=== PATIENT | female | born 1930 | race Caucasian/White ===

== ENCOUNTER 2019-01-31 16:42 | Inpatient (IN) | payer MEDICARE, MEDICAID ==
[~2019-01-31] VITALS: Ht 170.1 cm; Wt 84.2 kg
--- NOTE | ~2019-01-31 | EKG ---
[place], [place] ELECTROCARDIOGRAM REPORT NAME: CYNTHIA JARQUIN UNIT #: [id number] ROOM: 525 DOCTOR: MERARY DRAFT REPORT BIRTHDATE: [birth year] [facility] Test Date: 2019-01-31 Test Time: 17:16:41 Pat Name: CYNTHIA JARQIUN Department: Room: [facility] Gender: F First Line Production Supervisor: Brooke Joiner : [id number] Requested By: SHAY SCOTT DNP Order Number: [id number] Reading MD: Pastor Romano MD Measurements Intervals [place] Rate: 70 P: 8 IN: 193 QRS: -32 QRSD: 102 T: 7 QT: 441 QTc: 476 Interpretive Statements Sinus rhythm Left axis deviation Low voltage, precordial leads Borderline T abnormalities, anterior leads Electronically Signed On 02-01-2019 13:35:01 PDT by Pastor Romano MD CM:EKGRPT:ELECTROCARDIOGRAM REPORT [id number] SHAY SCOTT DNP EPIPHANY DRAFT REPORT SHAY SCOTT DNP
[2019-01-31 16:53] VITALS: BP 125/68
[2019-01-31 17:40] LABS: BASO % 0.2 % (0.0-1.0); EOS # 0.5 10*3/uL (0.0-0.4); EOS % 4.3 % (1.0-4.0); HEMOGLOBIN 11.3 g/dl (12.0-16.0); LYMPH # 3.9 10*3/uL (1.3-4.4); LYMPH % 31.1 % (27.0-41.0); MEAN CELL VOLUME 90.7 fl (81.0-99.0); MEAN CORPUSCULAR HGB 28.5 pg (27.0-31.0); MEAN CORPUSCULAR HGB CONC 31.4 g/dl (33.0-37.0); MEAN PLATELET VOLUME 11.3 fl (9.6-12.3); MONO # 1.3 10*3/uL (0.1-1.0); MONO % 10.2 % (3.0-9.0); NEUT # 6.7 10*3/uL (2.3-7.9); NEUT % 53.8 % (47.0-73.0); PLATELET COUNT AUTOMATED 277 10*3/uL (130-400); RED BLOOD COUNT 3.97 10*6/uL (4.10-5.10); WHITE BLOOD COUNT 12.4 10*3/uL (4.8-10.8)
--- NOTE | 2019-01-31 17:47 | NUR ---
[facility]
[2019-01-31 17:50] LABS: ACT PARTIAL THROMBO TIME 37.4 SECONDS (20.0-32.1); INTERNATIONAL NORM RATIO 2.5 (2.0-3.5)
[2019-01-31 17:54] LABS: ALBUMIN 2.4 gm/dl (3.1-4.5); ALKALINE PHOSPHATASE 97 U/L (45-117); BUN 20 mg/dl (7-24); CHLORIDE 105 mmol/L (98-107); CREATININE 1.39 mg/dL (0.55-1.02); LIPASE 99 U/L (73-393); POTASSIUM 5.3 mmol/L (3.5-5.1); SGOT/AST 23 IU/L (3-35); SGPT/ALT 21 U/L (12-78); SODIUM 140 mmol/L (136-145); TOTAL PROTEIN 6.9 gm/dL (6.4-8.2)
[2019-01-31 17:55] LABS: TROPONIN I < 0.015 ng/ml (<0.045)
[2019-01-31 18:23] VITALS: BP 131/71
[2019-01-31 18:23] LABS: BILIRUBIN NEGATIVE (NEGATIVE); BLOOD NEGATIVE (NEGATIVE); CLARITY SL CLOUDY (CLEAR); COLOR YELLOW (YELLOW); GLUCOSE NEGATIVE (NEGATIVE); KETONE NEGATIVE (NEGATIVE); LEUKO ESTERASE 3+ (NEGATIVE); NITRITE POSITIVE (NEGATIVE); UROBILINOGEN 0.2 E.U./dl (0.2-1.0)
[2019-01-31 18:31] LABS: BACTERIA 4+; WBC 51-100 wbc/hpf (0-5)
[2019-01-31 18:45] VITALS: BP 119/47
[2019-01-31 20:00] VITALS: BP 119/50
--- NOTE | 2019-01-31 20:27 | NUR ---
LAB CALLED ANGIE 3.5 CHIEF OF PLANNING SONIA NOTIFIED
[2019-01-31 23:20] VITALS: BP 119/50
--- NOTE | 2019-01-31 23:20 | NUR ---
A 88, admitted to 5E, under the services of ROSSY Larry DO with a diagnosis of UTI, GENERALIZED WEAKNESS, HYPERKALEMIA. Chief complaint is ABDOMINAL PAIN. Patient arrived via ambulance from ER. Monitor applied. Initial assessment completed. Vital signs taken and recorded. ROSSY LARRY DO notified of admission to the unit. Orders received. See assessment for past medical history, medications and allergies. Patient and/or family oriented to unit. visitation policy reviewed. Clothing/patient valuable form completed. WOLF TRIANA
[2019-02-01] VITALS: BP 119/50
[2019-02-01] MEDS ORDERED: CARDIZEM CD240 M1 PO
[2019-02-01] MEDS ORDERED: ASPIRIN ADULT L81 M1 PO
[2019-02-01] MEDS ORDERED: CELEXA40 MG PO (00:01)
[2019-02-01] MEDS ORDERED: CLARITIN10 MG PO (00:01)
[2019-02-01] MEDS ORDERED: COUMADIN4 M2 PO (00:03)
[2019-02-01] MEDS ORDERED: B121000 MCG/2 IM (00:05)
[2019-02-01] MEDS ORDERED: DICYCLOMINE HCL10 MG PO (00:06)
[2019-02-01] MEDS ORDERED: IRON325 M1 PO (00:07)
[2019-02-01] MEDS ORDERED: FLORASTOR250 MG PO (00:08)
[2019-02-01] MEDS ORDERED: HEMORRHOIDAL S R (00:10)
[2019-02-01] MEDS ORDERED: LASIX20 MG PO (00:11)
[2019-02-01] MEDS ORDERED: MAG-OXIDE200 MG PO (00:12)
[2019-02-01] MEDS ORDERED: GLUCOPHAGE850 M1 PO (00:13)
[2019-02-01] MEDS ORDERED: METOPROLOL TART50 M1 PO (00:13)
[2019-02-01] MEDS ORDERED: MIRALAX POWDER17 G1 PO (00:14)
[2019-02-01] MEDS ORDERED: POTASSIUM CHLO20 ME3 PO (00:16)
[2019-02-01] MEDS ORDERED: TYLENOL325 M1 PO (00:17)
[2019-02-01] MEDS ORDERED: RANITIDINE HCL150 M1 PO (00:17)
[2019-02-01] MEDS ORDERED: VITAMIN C500 M4 PO (00:18)
--- NOTE | 2019-02-01 05:09 | NUR ---
MILKACYNTHIA [id number] Please refer to the physician's history and physical for past medical history, comorbid conditions, and allergies. Diagnosis: UTI,GENERALIZED WEAKNESS,HYPERKALEMIA Kar Score: 14,MODERATE RISK WOUND DESCRIPTIONS: Wound Number: 1 Location of the wound: right buttocks Type of wound: stage 2 Thickness: Partial Size: 0.6cm x 0.3cm x 0.1cm Tunneling: none Undermining: none Sinus Tract: none Presence of Exudate: Serosanguineous Amount: None Color: Red Odor: None Periwound Skin Appearance: Erythema Wound edges: approximated Pain (associated with wound): none at time of assessment How does patient state this happened? pt unable to state how this happened Wound Number: 2 Location of the wound: left buttocks Type of wound: stage 2 Thickness: Partial Size: 2.0cm x 1.5cm x 0.1cm Tunneling: none Undermining: none Sinus Tract: none Presence of Exudate: Serosanguineous Amount: None Color: Red Odor: None Periwound Skin Appearance: Erythema Wound edges: approximated Pain (associated with wound): none at time of assessment How does patient state this happened? pt unable to state how this happened Wound Number: 3 Location of the wound: left upper buttocks Type of wound: stage 2 Thickness: Partial Size: 0.8cm x 0.8cm x 0.1cm Tunneling: none Undermining: none Sinus Tract: none Presence of Exudate: Serosanguineous Amount: None Color: Red Odor: None Periwound Skin Appearance: Erythema Wound edges: approximated Pain (associated with wound): none at time of assessment How does patient state this happened? pt unable to state how this happened Bilateral heels red and blanchable upon assessment. No open areas noted to bilateral heels and no drainage noted to bilateral heel. Surface the patient is resting on: Isoflex SKIN PREVENTION RECOMMENDATION: 1. Pressure redistribution support surface as appropriate 2. Elevate heels 3. Remove boots/TEDS every shift and reapply 4. Head of bed 30 degrees as tolerated 5. Assess nutrition and hydration 6. Manage moisture 7. Avoid the use of containment devices while in bed 8. Use absorptive products on surfaces limit layers of linens on bed 9. Turn and reposition every 1-2 hours in bed and every 1 hour in chair as tolerated 10. Weight shifts every 15 minutes while up in chair 11. Offloading with pillows or device to keep heels elevated off bed 12. Monitor skin at least every shift 13. Inspect under medical devices twice a day WOUND TREATMENT RECOMMENDATIONS: Wheelchair cushion when oob. Heel raiser pro boots while in bed. Stage 2 guidelines: Cleanse right buttocks, left buttocks and left upper buttocks with nss and apply sureprep around the wound hydrogel to wound bed and cover with optifoam sacral gentle.
[2019-02-01 06:48] LABS: BASO % 0.4 % (0.0-1.0); EOS # 0.5 10*3/uL (0.0-0.4); EOS % 4.4 % (1.0-4.0); HEMATOCRIT 36.7 % (37.0-47.0); LYMPH # 3.1 10*3/uL (1.3-4.4); LYMPH % 29.6 % (27.0-41.0); MEAN CELL VOLUME 92.9 fl (81.0-99.0); MEAN CORPUSCULAR HGB 27.8 pg (27.0-31.0); MEAN PLATELET VOLUME 11.6 fl (9.6-12.3); MONO % 9.7 % (3.0-9.0); NEUT # 5.9 10*3/uL (2.3-7.9); NEUT % 55.4 % (47.0-73.0); PLATELET COUNT AUTOMATED 241 10*3/uL (130-400); RED BLOOD COUNT 3.95 10*6/uL (4.10-5.10); RED CELL DISTRI WIDTH 15.1 % (0-14.5); WHITE BLOOD COUNT 10.6 10*3/uL (4.8-10.8)
[2019-02-01 07:04] LABS: ALBUMIN 2.6 gm/dl (3.1-4.5); CREATININE 1.51 mg/dL (0.55-1.02); FREE T4 1.4 ng/dl (0.76-1.46); PHOSPHOROUS 3.6 mg/dL (2.5-4.9); POTASSIUM 4.9 mmol/L (3.5-5.1); TOTAL PROTEIN 6.9 gm/dL (6.4-8.2)
[2019-02-01 07:09] LABS: THYROID STIM HORMONE (HS) 1.14 uIU/ml (0.358-4.75)
[2019-02-01 08:00] VITALS: BP 130/68
--- NOTE | 2019-02-01 08:04 | NUR ---
Patient comes from [facility]. She is terminal gauger supervisor care and can return when medically stable.
--- NOTE | 2019-02-01 09:33 | NUR ---
Dr. Guy notified of wound care recommendations.
[2019-02-01 12:00] VITALS: BP 134/76
--- NOTE | 2019-02-01 12:50 | NUR ---
PT IS USP CARE AT [facility] AND CAN RETURN WHEN MEDICALLY STABLE. WILL CONTINUE TO FOLLOW.
[2019-02-01 16:00] VITALS: BP 151/62
[2019-02-01 20:00] VITALS: BP 148/60
--- NOTE | 2019-02-01 21:15 | NUR ---
PATIENT RESTING COMFORTABLY IN BED FOR ASSESSMENT. TOOK 2200 PILL WITHOUT ISSUE. PATIENT IS NONVERBAL. DOES NOT APPEAR IN ANY DISTRESS. IVF MAINTAINED PER ORDER. CALL LIGHT IN REACH.
[2019-02-02] VITALS: BP 140/66
[2019-02-02 08:00] VITALS: BP 130/78
[2019-02-02 11:37] LABS: BASO % 0.3 % (0.0-1.0); EOS # 0.4 10*3/uL (0.0-0.4); EOS % 3.5 % (1.0-4.0); HEMATOCRIT 34.6 % (37.0-47.0); HEMOGLOBIN 10.8 g/dl (12.0-16.0); LYMPH # 2.8 10*3/uL (1.3-4.4); LYMPH % 25.4 % (27.0-41.0); MEAN CELL VOLUME 90.8 fl (81.0-99.0); MEAN CORPUSCULAR HGB 28.3 pg (27.0-31.0); MEAN CORPUSCULAR HGB CONC 31.2 g/dl (33.0-37.0); MONO # 0.8 10*3/uL (0.1-1.0); MONO % 7.6 % (3.0-9.0); NEUT # 6.8 10*3/uL (2.3-7.9); NEUT % 62.8 % (47.0-73.0); PLATELET COUNT AUTOMATED 241 10*3/uL (130-400); RED BLOOD COUNT 3.81 10*6/uL (4.10-5.10); RED CELL DISTRI WIDTH 14.8 % (0-14.5); WHITE BLOOD COUNT 10.9 10*3/uL (4.8-10.8)
[2019-02-02 11:50] LABS: INTERNATIONAL NORM RATIO 2.5 (2.0-3.5)
[2019-02-02 11:55] LABS: CHLORIDE 106 mmol/L (98-107); CREATININE 0.98 mg/dL (0.55-1.02); POTASSIUM 4.2 mmol/L (3.5-5.1); SODIUM 138 mmol/L (136-145)
[2019-02-02 11:56] LABS: BUN 13 mg/dl (7-24)
[2019-02-02 12:00] VITALS: BP 127/82
[2019-02-02 16:00] VITALS: BP 152/71
[2019-02-02 20:00] VITALS: BP 145/60
--- NOTE | 2019-02-02 21:41 | NUR ---
PATIENT TOOK 2200 MEDICATIONS CRUSHED IN APPLESAUCE WITHOUT ISSUE. RESTING COMFORTABLY IN BED AT THIS TIME. CALL LIGHT IN REACH. BED ALARM ON.
[2019-02-03] VITALS: BP 141/53
[2019-02-03 07:05] LABS: INTERNATIONAL NORM RATIO 2.4 (2.0-3.5)
[2019-02-03 08:00] VITALS: BP 150/56
--- NOTE | 2019-02-03 08:00 | NUR ---
Patient resting quietly with no c/o discomfort. Respirations easy and regular. Vital signs stable. NON VERBAL BUT APPEARS TO HAVE NO overt distress. ADIS BLANCA
[2019-02-03 12:00] VITALS: BP 138/65
[2019-02-03 16:00] VITALS: BP 122/82
--- NOTE | 2019-02-03 17:52 | NUR ---
MEDICATED WITH PO TYLENOL ORDERED PER DAUGHTER'S REQUEST FOR C/O GRIMACING W/ TURNING.
--- NOTE | 2019-02-03 19:59 | NUR ---
MEDICATION EFFECTIVE FOR PAIN.
[2019-02-03 20:00] VITALS: BP 138/53
--- NOTE | 2019-02-03 20:00 | NUR ---
PATIENT IS RESTING WITH NO SIGNS/SYMPTOMS OF DISTRESS/PAIN AT THIS TIME. GILBERT CATHETER IN PLACE DRAINING CLEAR YELLOW URINE AT THIS TIME. VERY SMALL SMEAR OF BOWEL. DRESSING DRY AND INTACT. CAN BE COMBATIVE WITH CARE AT TIMES.
[2019-02-04] VITALS: BP 141/49
--- NOTE | 2019-02-04 03:05 | NUR ---
PATIENT IS RESTING WITH EYES CLOSED, EASY RESPIRATIONS, AND NO SIGNS OF DISTRESS/PAIN
--- NOTE | 2019-02-04 03:12 | NUR ---
24 HR chart check completed.
[2019-02-04 06:32] LABS: BASO % 0.3 % (0.0-1.0); EOS # 0.5 10*3/uL (0.0-0.4); EOS % 4.5 % (1.0-4.0); HEMATOCRIT 34.9 % (37.0-47.0); HEMOGLOBIN 10.8 g/dl (12.0-16.0); LYMPH % 26.3 % (27.0-41.0); MEAN CELL VOLUME 89.5 fl (81.0-99.0); MEAN CORPUSCULAR HGB 27.7 pg (27.0-31.0); MEAN CORPUSCULAR HGB CONC 30.9 g/dl (33.0-37.0); MONO # 1.3 10*3/uL (0.1-1.0); MONO % 11.2 % (3.0-9.0); NEUT # 6.5 10*3/uL (2.3-7.9); NEUT % 57.3 % (47.0-73.0); PLATELET COUNT AUTOMATED 231 10*3/uL (130-400); WHITE BLOOD COUNT 11.4 10*3/uL (4.8-10.8)
[2019-02-04 06:47] LABS: BUN 11 mg/dl (7-24); CHLORIDE 107 mmol/L (98-107); CREATININE 0.95 mg/dL (0.55-1.02); POTASSIUM 3.7 mmol/L (3.5-5.1); SODIUM 142 mmol/L (136-145)
[2019-02-04 06:59] LABS: INTERNATIONAL NORM RATIO 1.9 (2.0-3.5)
--- NOTE | 2019-02-04 07:16 | NUR ---
BLOOD SUGAR 123 OBTAINED FROM AM, VENOUS LAB DRAW.
[2019-02-04 08:00] VITALS: BP 148/55
--- NOTE | 2019-02-04 08:44 | NUR ---
Updates clinicals faxed to [facility]. 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
[2019-02-04 12:00] VITALS: BP 134/61
--- NOTE | 2019-02-04 13:59 | NUR ---
Patient is discharged to return to [facility], transportation scheduled for 3:30 with [facility]. SC, nursing/wardrobe image consultant and sister all notified.
--- NOTE | 2019-02-04 14:49 | NUR ---
NURSE TO NURSE REPORT GIVEN TO KARINE DONATO
--- NOTE | 2019-02-04 16:36 | NUR ---
Discharge instructions reviewed with patient/family. Patient receptive and verbalizes understanding. Follow-up care arranged. Written instructions given to patient/family. SANDRA AHN
== END 2019-02-04 16:36 | disposition other institution (70) | DRG 871 ==
LOC: ED 16:42 → 5E 20:59 → EDHOLD 20:59 → ICCU 21:20 → 5E 22:27
PROVIDERS: Family Medicine; Nurse Practitioner Family; Student in an Organized Health Care Education/Training Program; ADMIT Internal Medicine
DX: A41.9 Sepsis, unspecified organism (principal); E43 Unspecified severe protein-calorie malnutrition; N30.01 Acute cystitis with hematuria; E87.2 Acidosis; N17.9 Acute kidney failure, unspecified; R65.20 Severe sepsis without septic shock; R53.1 Weakness; E87.5 Hyperkalemia; E86.0 Dehydration; E83.51 Hypocalcemia; D64.9 Anemia, unspecified; E66.9 Obesity, unspecified; I12.9 Hypertensive chronic kidney disease with stage 1 through stage 4 chronic kidney disease, or unspecified chronic kidney disease; F41.9 Anxiety disorder, unspecified; B96.20 Unspecified Escherichia coli [E. coli] as the cause of diseases classified elsewhere; F01.50 Vascular dementia, unspecified severity, without behavioral disturbance, psychotic disturbance, mood disturbance, and anxiety; E11.65 Type 2 diabetes mellitus with hyperglycemia; Z96.659 Presence of unspecified artificial knee joint; F32.9 Major depressive disorder, single episode, unspecified; K21.9 Gastro-esophageal reflux disease without esophagitis; N18.3 Chronic kidney disease, stage 3 (moderate); E11.22 Type 2 diabetes mellitus with diabetic chronic kidney disease; S31.000A Unspecified open wound of lower back and pelvis without penetration into retroperitoneum, initial encounter; X58.XXXA Exposure to other specified factors, initial encounter; Y93.89 Activity, other specified; Y92.89 Other specified places as the place of occurrence of the external cause; Y99.8 Other external cause status; Z86.73 Personal history of transient ischemic attack (TIA), and cerebral infarction without residual deficits; Z98.51 Tubal ligation status; Z80.8 Family history of malignant neoplasm of other organs or systems; Z79.899 Other long term (current) drug therapy; Z79.82 Long term (current) use of aspirin; Z79.01 Long term (current) use of anticoagulants; Z68.29 Body mass index [BMI] 29.0-29.9, adult